=== PATIENT | female | born 1985 ===

== ENCOUNTER 2017-08-22 11:09 | Emergency (ER) | payer SELFPAY ==
[2017-08-22 11:13] VITALS: BP 146/78; PULSE 79; RESP 18; TEMP 97.3; O2SAT 100
--- NOTE | 2017-08-22 12:07 | C.PDOC ---
History Of Present Illness 31 y/o female c/o intermittent bilateral knee pain for the past 3 months. Pain is 5/10, dull, throbbing, non-radiating; hurts when walking, laying down, and sitting. Nothing makes the pain worse or better. Patient reports getting meds from [facility] (A type of Glucosamine) that helped with the pain, but when the meds were finished, the pain returned. Patient denies injuries, weakness, or numbness. Time Seen by Provider: 08/22/17 11:30 Chief Complaint (Nursing): Lower Extremity Problem/Injury History Per: Patient History/Exam Limitations: no limitations Onset/Duration Of Symptoms: Days (3 months), Intermittent Episodes Current Symptoms Are (Timing): Still Present Severity: Moderate Pain Scale Rating Of: 5 Recent travel outside of the [place]: No Additional History Per: Patient Past Medical History Reviewed: Historical Data, Nursing Documentation, Vital Signs Vital Signs: Last Vital Signs Temp 97.3 F L 08/22/17 11:12 Pulse 79 08/22/17 11:12 Resp 18 08/22/17 11:12 BP 146/78 08/22/17 11:12 Pulse Ox 100 08/22/17 12:43 - Interface21 Procedures MONITORING NOS (09/02/14) MANUAL ASSIST DELIV NEC (09/02/14) REPAIR OB LACERATION NEC (09/02/14) Family History: States: Unknown Family Hx - Social History Hx Alcohol Use: No Hx Substance Use: No - Immunization History Hx Tetanus Toxoid Vaccination: No Hx Influenza Vaccination: No Hx Pneumococcal Vaccination: No Review Of Systems Except As Marked, All Systems Reviewed And Found Negative. Constitutional: Negative for: Other (Injury) Musculoskeletal: Positive for: Leg Pain (Bilateral knee pain) Neurological: Negative for: Weakness, Numbness Physical Exam - Physical Exam Appears: Non-toxic, No Acute Distress Skin: Warm, Dry Head: Atraumatic, Normacephalic Extremity: Normal ROM (x4), No Tenderness, Capillary Refill (<2secs), No Deformity, No Swelling Pulses: Left Dorsalis Pedis: Normal, Right Dorsalis Pedis: Normal Neurological/Psych: Oriented x3, Normal Motor, Normal Sensation Gait: Steady ED Course And Treatment O2 Sat by Pulse Oximetry: 100 Pulse Ox Interpretation: Normal Medical Decision Making Medical Decision Making: Plans: * Tylenol * Motrin Disposition Counseled Patient/Family Regarding: Diagnosis, Need For Followup - Disposition Referrals: [facility] [Outside] Disposition: HOME/ ROUTINE Disposition Time: 12:13 Condition: STABLE Additional Instructions: Por favor haz un seguimiento en la clnica. Puedes shona Motrin para el dolor. El medicamento de fitzpatrick pas que le estaba funcionando es similar a la glucosamina. Puede obtener esto en tiendas de alimentos saludables. Forms: [employer] (Bangladeshi) - POA Present On Arrival: None - Clinical Impression Clinical Impression: Joint pain - Scribe Statement The provider has reviewed the documentation as recorded by the Scribe Phong davis All medical record entries made by the Scribe were at my direction and personally dictated by me. I have reviewed the chart and agree that the record accurately reflects my personal performance of the history, physical exam, medical decision making, and the department course for this patient. I have also personally directed, reviewed, and agree with the discharge instructions and disposition.
== END 2017-08-22 12:26 | disposition home or self-care (01) ==
LOC: C.ER 11:09
DX: M25.562 Pain in left knee (principal); M25.561 Pain in right knee